=== PATIENT | male | born 1970 | race Two or more races ===

== ENCOUNTER 2021-05-07 09:00 | Outpatient (CLI) | payer OTHER | END 2021-05-07 23:59 | disposition short-term general hospital (02) | LOC: LAB 09:00 | PROVIDERS: ATTEND Specialist | DX: Z01.812 Encounter for preprocedural laboratory examination (principal); Z20.822 Contact with and (suspected) exposure to COVID-19 | CPT/HCPCS: C9803; U0003 ==

== ENCOUNTER 2021-05-13 09:02 | Day surgery (SDC) | payer OTHER ==
[~2021-05-13 09:02] MED LIST: EPINEPHRINE (1:1000) 1 MG/ML AMPUL ONE; LIDOCAINE 1% INJ 50 ML MDV IJ ONE; methylPREDNISolone ACETATE 80 MG/ML VIAL ONE
[2021-05-13] MEDS ORDERED: FENTANYL PF 100MCG/2ML AMPUL ONE (11:51)
[2021-05-13] MEDS ORDERED: BUPIVACAINE MPF 0.5% W/EPI INJ 30 ML VIAL ONE (11:53)
[2021-05-13] MEDS ORDERED: LABETALOL HCL IV 100MG VIAL ONE (13:31)
[2021-05-13] MEDS ORDERED: MIDAZOLAM HCL 2 MG/2ML VIAL ONE (13:36)
[2021-05-13] MEDS ORDERED: ALBUTEROL FS 2.5 MG/3 ML VIAL.NEB ONE (14:14)
[2021-05-13] MEDS ORDERED: ALBUTEROL HALF STRENGTH 1.25 MG/3 ML VIAL.NEB ONE (14:26)
[2021-05-13] MEDS ORDERED: HYDROCODONE/APAP 10/325MG TABLET ONE (15:09)
[2021-05-13] MEDS ORDERED: HYDROCODONE/APAP 5/325MG TABLET ONE (15:10)
[2021-05-13] MEDS ORDERED: KETOROLAC TROMETHAMINE INJ 30 MG/ML VIAL ONE (15:15)
== END 2021-05-13 16:05 | disposition home or self-care (01) ==
LOC: DS 09:02
PROVIDERS: ATTEND Specialist
DX: M75.41 Impingement syndrome of right shoulder (principal); E11.9 Type 2 diabetes mellitus without complications; M65.811 Other synovitis and tenosynovitis, right shoulder; I10 Essential (primary) hypertension; G47.33 Obstructive sleep apnea (adult) (pediatric); E66.01 Morbid (severe) obesity due to excess calories; J45.909 Unspecified asthma, uncomplicated; G89.29 Other chronic pain; E78.5 Hyperlipidemia, unspecified; Z79.899 Other long term (current) drug therapy
CPT/HCPCS: 29822; 29826; 71045; 82962 ×2; A4217; J0171; J0330; J0690; J1040; J1885; J2250; J2405; J2704; J3010; J3490 ×5